=== PATIENT | male | born 1980 | race Caucasian/White ===

== ENCOUNTER 2020-05-14 14:42 | Emergency (ER) | payer OTHER, SELFPAY ==
--- NOTE | ~2020-05-14 | CT_ITS ---
EXAMINATION: CT abdomen pelvis w con EXAM DATE: 05/14/2020 15:35 INDICATION: Low abdominal pain. TECHNIQUE: Spiral CT of the abdomen and pelvis was performed following intravenous injection of 100 m L Omnipaque 350. Axial, coronal and sagittal images were reviewed. The dose-length product (DLP) fo r this examination was 341.86 mGy-cm. The exposure was tailored according to patient size (auto mA e xposure control), and iterative reconstruction (ASIR) was used as additional dose reduction technique . Comparison is made to prior examination from 11/28/2018. FINDINGS: There is small left liver lobe flash filling hemangioma unchanged. The liver, spleen, adre nal glands and pancreas are otherwise unremarkable. Gallbladder is unremarkable. No biliary obstruc tion. Portal and splenic veins are patent. Kidneys enhance symmetrically. There is no hydronephros is. The prostate is unremarkable. The bladder is unremarkable. There is no retroperitoneal or pel sylwia lymphadenopathy. There is suspicion of edema at the cecal base. Appendix measures 7 mm in diameter, was about 6 on jolie or examination. There is no appendicolith or adjacent inflammation. Also suspect mild edema of the de scending colon, with some colonic fluid. Consider colitis. Fluid within the rectum, correlate for leslee rrhea. The stomach and small bowel are unremarkable. There is expected amount of colonic stool. No free intraperitoneal gas. The heart is normal in size. There are no pericardial or pleural effusi ons. The lung bases are unremarkable. The bones are unremarkable. IMPRESSION: 1. Some focal cecal base edema and also suspect sigmoid colonic edema, colonic fluid. Consider enter ocolitis. 2. Appendix slightly larger than on prior study but no obstructing stone or associated inflammation; appendicitis is not suspected. Reviewed, dictated and finalized at location A. IMPRESSION: 1. Some focal cecal base edema and also suspect sigmoid colonic edema, colonic fluid. Consider enterocolitis. 2. Appendix slightly larger than on prior study but no obstructing stone or as sociated inflammation; appendicitis is not suspected.
[2020-05-14 14:43] VITALS: BP 146/88; PULSE 60; RESP 18; TEMP 36.3; O2SAT 100
[2020-05-14 15:01] LABS: Basophils Percent Auto 0.3 % (0.2-1.2); Eosinophils Absolute Auto 0.1 K/mm3 (0-0.3); Eosinophils Percent Auto 0.4 % (0-4.4); Hematocrit 48.7 % (42.0-52.0); Hemoglobin 16.9 g/dL (14.0-18.0); Immature Granulocyte Absolute 0.07 K/mm3 (0.00-0.031); Immature Granulocyte Percent A 0.5 % (0-0.5); Lymphocytes Percent Auto 6.8 % (18.3-44.2); Mean Corpuscular HGB Conc 34.7 g/dl (32-36); Mean Corpuscular Hemoglobin 32.7 pg (26-34); Mean Corpuscular Volume 94.2 fl (80-100); Mean Platelet Volume 9.4 fl (7.4-10.4); Monocytes Absolute Auto 0.4 K/mm3 (0.1-0.6); Monocytes Percent Auto 2.8 % (2.6-8.5); Neutrophils Absolute Auto 11.8 K/mm3 (1.3-6.7); Neutrophils Percent Auto 89.2 % (45.5-73.1); Platelet Count Result 233 k/mm3 (150-375); Red Blood Count 5.17 M/mm3 (4.6-6.20); Red Cell Distribution Width 12.7 % (11.5-14.5); White Blood Count 13.2 K/mm3 (4.5-10.0)
[2020-05-14 15:16] LABS: Alanine Aminotransferase 29 U/L (4-50); Albumin Level 4.6 g/dL (3.5-5.1); Alkaline Phosphatase 88 U/L (38-126); Anion Gap 12.8 mmol/L (7-16); Aspartate Amino Transferase 23 U/L (17-59); Bilirubin,Total 0.6 mg/dL (0.2-1.3); Blood Urea Nitrogen 9 mg/dL (9-20); Calcium 9.4 mg/dL (8.4-10.2); Carbon Dioxide 25 mmol/L (22-30); Chloride 105 mmol/L (98-107); Estimated Glomerular Filt Rate > 60; Glucose 131 mg/dL (75-110); Lipase 46 U/L (23-300); Potassium 3.8 mmol/L (3.4-5.0); Sodium 139 mmol/L (137-145)
[2020-05-14 15:23] LABS: Add Urine Microscopic? YES; Appearance Urine Clear (Clear); Bacteria Urine Trace /hpf; Bilirubin Urine Negative (Negative); Blood Urine Negative (Negative); Color Urine Yellow (Yellow); Glucose Urine UA 1+ mg/dL (Negative); Ketones Urine 2+ mg/dL (Negative); Leukocyte Esterase Ur Negative LEU/UL (Negative); Mucus Urine Rare /lpf; Nitrate Urine Negative (Negative); Protein Urine 1+ mg/dL (Negative); RBC Urine 0-2 /hpf (0-2); Specific Grav Ur 1.027 (1.001-1.035); Squamous Epithelial Cell Urine Rare /hpf (Few); Urobilinogen Urine Negative mg/dL (<2.0); WBC Urine 0-3 /hpf
[2020-05-14] MEDS: SODIUM CHLORIDE 0.9% IV 1,000 ML 999 ML IV CONT (15:38)
[2020-05-14] MEDS: BELLADONNA ALK/PHENOB ELIX 10 ML, MAG HYDROX/ALUMINUM HYD/SIMETH 30 ML, LIDOCAINE HCL 2... PO (16:28)
--- NOTE | 2020-05-14 16:45 | ED.ABDPAIN ---
HPI - Abdominal Pain General Chief Complaint: Abdominal Pain Stated Complaint: abd pain Time Seen by Provider: 05/14/20 14:57 History of Present Illness HPI narrative: Patient is a 39-year-old male who presents the ER with abdominal pain. Woke up this morning with lower abdominal pain with pressure under his bottom like he had to poop. A small bowel movement. No fevers or chills or sweats. Mild nausea. No known sick contacts. Has not had similar symptoms before. Is found no alleviating factors. Reports mild burning reflux. Related Data Home Medications Medication Instructions Recorded Confirmed [id number] 05/14/20 Allergies Allergy/AdvReac Type Severity Reaction Status Date / Time No Known Allergies Allergy Verified 05/14/20 14:48 Review of Systems Review of Systems: All systems reviewed & are unremarkable except as noted in HPI and below Constitutional: Constitutional: Denies chills, Reports fatigue and Denies fever(s) ENT: Denies nasal congestion and Denies sore throat Respiratory: Respiratory: Denies cough and Denies dyspnea Gastrointestinal: Gastrointestinal: Reports abdominal pain, Denies constipation, Reports heartburn, Denies diarrhea, Reports nausea and Denies vomiting Genitourinary: Genitourinary: Denies hematuria, Denies dysuria and Denies urinary frequency PMFSH Past Medical History Medical History (Updated 05/14/20 @ 16:51 by Jayson Kurtz MD) GERD (gastroesophageal reflux disease) Migraines Surgical History Surgical History (Updated 05/14/20 @ 16:46 by Jayson Kurtz MD) H/O shoulder surgery Social History Social History (Updated 05/14/20 @ 16:47 by Jayson Kurtz MD) Social History: History of tobacco use and alcohol use Gender identity (if verbalized by the patient): Male Exam Narrative: Exam Narrative: GENERAL: Well-appearing, well-nourished, and in no acute distress. HEAD: Normocephalic, atraumatic. CHEST: Clear to auscultation. No respiratory distress. HEART: Regular rate and rhythm. Normal peripheral pulses. ABDOMEN: Soft, nontender, nondistended. EXTREMITIES: Normal range of motion. No edema. SKIN: Warm, dry, no rash. NEURO: Alert and oriented x3. PSYCH: Normal mood and affect. Course Course Emergency Course: Informed of lab results and CT imaging results. No real change with GI cocktail. Will discharge with simethicone and Bentyl to help with abdominal cramping given likely developing enterocolitis. Abdominal exam revealed no focal tenderness. Vital Signs Vital signs: Vital Signs Temperature 97.3 F L 05/14/20 14:43 Pulse Rate 60 05/14/20 14:43 Respiratory Rate 18 05/14/20 14:43 Blood Pressure 146/88 H 05/14/20 14:43 Pulse Oximetry 100 05/14/20 14:43 Temperature 97.3 F L 05/14/20 14:43 Pulse Rate 60 05/14/20 14:43 Respiratory Rate 18 05/14/20 14:43 Blood Pressure 146/88 H 05/14/20 14:43 Pulse Oximetry 100 05/14/20 14:43 MDM - Abdominal Pain Lab Data Result diagrams: 05/14/20 14:55 05/14/20 14:55 Labs: Lab Results 05/14/20 05/14/20 05/14/20 Range/Units 14:55 14:55 15:09 WBC 13.2 H (4.5-10.0) K/mm3 RBC 5.17 (4.6-6.20) M/mm3 Hgb 16.9 (14.0-18.0) g/dL Hct 48.7 (42.0-52.0) % MCV 94.2 (80-100) fl MCH 32.7 (26-34) pg MCHC 34.7 (32-36) g/dl RDW 12.7 (11.5-14.5) % Plt Count 233 (150-375) k/mm3 MPV 9.4 (7.4-10.4) fl Immature Gran % (Auto) 0.5 (0-0.5) % Neut % (Auto) 89.2 H (45.5-73.1) % Lymph % (Auto) 6.8 L (18.3-44.2) % Coke % (Auto) 2.8 (2.6-8.5) % Eos % (Auto) 0.4 (0-4.4) % Baso % (Auto) 0.3 (0.2-1.2) % Lymph # (Auto) 0.90 (0.9-3.2) K/mm3 Coke # (Auto) 0.4 (0.1-0.6) K/mm3 Eos # (Auto) 0.1 (0-0.3) K/mm3 Baso # (Auto) 0.0 (0.0-0.1) K/mm3 Abs Immat Gran (auto) 0.07 H (0.00-0.031) K/mm3 Absolute Neuts (auto) 11.8 H (1.3-6.7) K/mm3 Absolute
[2020-05-14 17:50] VITALS: BP 146/83; PULSE 66; RESP 19; O2SAT 100
== END 2020-05-14 17:53 | disposition home or self-care (01) ==
PROVIDERS: Emergency Provider Emergency Medicine; PCP Internal Medicine Infectious Disease
DX: K52.9 Noninfective gastroenteritis and colitis, unspecified (principal); K21.9 Gastro-esophageal reflux disease without esophagitis; Z87.891 Personal history of nicotine dependence
CPT/HCPCS: 36415; 74177; 80053; 81001; 83690; 85025; 96360; 96361; 99284; A9270; J7030; Q9967

== ENCOUNTER 2021-03-13 15:51 | Emergency (ER) | payer OTHER, SELFPAY ==
[2021-03-13 15:59] VITALS: BP 131/87; PULSE 96; RESP 16; TEMP 36.7; O2SAT 100
--- NOTE | 2021-03-13 16:01 | ED.GENADULT ---
HPI - General Adult General Chief complaint: Wound/Laceration Stated complaint: head injury Time Seen by Provider: 03/13/21 15:55 Source: patient and RN notes reviewed Mode of arrival: ambulatory Limitations: no limitations History of Present Illness HPI narrative: 40-year-old male presents to the [facility] with a small laceration to the top of his head. Patient reports that he was up in an attic crawling around repairing some HVAC stuff when he hit his head on some ten nails. tDap over 10 years. Bleeding is controlled. Patient tried cleaning it at home. Was concerned for the ten nails and needing it tetanus shot. Related Data Home Medications Medication Instructions Recorded Confirmed No Home Medications 03/13/21 03/13/21 Allergies Allergy/AdvReac Type Severity Reaction Status Date / Time No Known Allergies Allergy Verified 03/13/21 16:31 Review of Systems Review of Systems: All systems reviewed & are unremarkable except as noted in HPI and below Constitutional: Constitutional: Reports no additional constitutional complaints, Denies chills, Denies fever(s) and Denies weakness Eyes: Eyes: Reports no additional eye complaints, Denies change in vision and Denies photophobia ENT: Reports system reviewed and no additional complaints, except as documented Cardiovascular: Cardiovascular: Reports no additional cardiovascular complaints and Denies chest pain Respiratory: Respiratory: Reports no additional respiratory complaints, Denies cough, Denies dyspnea and Denies wheezing Musculoskeletal: Musculoskeletal: Reports no additional musculoskeletal complaints and Denies back pain Integumentary/Breasts: Skin/Breast: Reports as per HPI Comments: 0.5 cm laceration top of head Neurologic: Reports system reviewed and no additional complaints, except as documented, Denies dizziness, Denies headache(s), Denies focal weakness, Denies numbness and Denies weakness PMF Past Medical History Medical History (Updated 03/13/21 @ 16:22 by Haley Roth) GERD (gastroesophageal reflux disease) Migraines Surgical History Surgical History H/O shoulder surgery Social History Social History Social History: History of tobacco use and alcohol use Gender identity (if verbalized by the patient): Male Comments At the time of my signature, I reviewed and agree with the nursing past medical, surgical, social, and family history. There is no relevant family history pertinent to the patient complaint. Exam Const: General: healthy appearing, no acute distress and alert Nutritional Appearance: well nourished Orientation/consciousness: patient oriented x3 Limitations: no limitations HENMT: Head: normal to inspection Mouth: Yes lip normal Eyes: Conjunctivae: conjunctivae normal Pupils: Equal, round and reactive pupils present EOM: EOMs intact bilaterally Direct Ophthalmoscopy: no photophobia and No photophobia Neck: Neck: normal visual inspection, no lymphadenopathy and no meningeal signs Chest: Chest palpation & inspection: normal inspection of the chest Resp: Effort & Inspection: normal respiratory effort and no use of accessory muscles Auscultation: clear to auscultation bilaterally Cardio: Rate: regular rate Rhythm: regular rhythm Back/Spine/Pelvis: Back: no CVA tenderness Skin: General skin exam: normal color Wounds: wounds noted (Top of scalp 0.5 cm) Neuro: General: patient oriented x3 and moves all extremities Cranial nerves: Yes Nystagmus not present Speech: normal speech Gait exam (Neuro): Normal gait present Extrem: General: normal to inspection Psych: Appearance: grossly normal and well kempt Mental Status: mental status grossly normal Affect: normal affect Attitude: cooperative Thought content: Yes Normal thought content present Course Course Emergency Course: Discharge instructions revi
[2021-03-13] MEDS: TETANUS,DIPHTHERIA,AC PERTUSSIS ADULT (0.5 ML) BOOSTRIX IM (16:09)
== END 2021-03-13 16:26 | disposition home or self-care (01) ==
PROVIDERS: Emergency Provider Nurse Practitioner; PCP Internal Medicine Infectious Disease
DX: S01.01XA Laceration without foreign body of scalp, initial encounter (principal); W45.0XXA Nail entering through skin, initial encounter; Z23 Encounter for immunization; K21.9 Gastro-esophageal reflux disease without esophagitis
CPT/HCPCS: 90471; 90715; 99212; G0463

== ENCOUNTER → 2021-09-28 09:18 | Outpatient (CLI) | payer OTHER, SELFPAY ==
--- NOTE | ~2021-09-28 | XR_ITS ---
XR chest 2V DATE: 09/28/2021 09:44 INDICATION: Nicotine dependence TECHNIQUE: 2 views COMPARISON: None FINDINGS: Normal heart size. No hilar or mediastinal enlargement. The lungs are moderately hyperinflated. No pulmonary infiltrate or consolidation, pleural effusion or pulmonary vascular congestion or pneumothorax. No hilar or mediastinal enlargement. There is mild dextroscoliosis mild degenerative spurring of the thoracic spine. IMPRESSION: Moderate hyperinflation; no active cardiopulmonary disease Reviewed, dictated and finalized at location B. SPECIALIST
--- NOTE | ~2021-09-28 | US_ITS ---
US abdomen complete EXAMINATION: US Abdomen Complete INDICATION: Gallbladder sludge PROCEDURE: Realtime High Resolution abdomen ultrasound. COMPARISON: No prior studies for comparison FINDINGS: Gallbladder within normal limits. No gallstones, pericholecystic fluid, gallbladder wall t hickening or biliary dilatation. Common bile duct measures 4 mm. Liver echotexture within normal limits. There is a 1 cm liver cyst. Pancreas within normal limits. P ancreatic tail is obscured by bowel gas. Spleen is unremarkeable. Renal echotexture is within normal limits bilaterally without hydronephrosis, contour deforming mass or renal stone. Right kidney measu res 10.1 cm. Left kidney measures 9.9 cm. Visualized aspects of the aorta and IVC are within normal limits. Portal vein is patent. No sonograph ic Vizcarra's sign indicated by the technologist. IMPRESSION: 1: Unremarkable abdominal ultrasound. Reviewed, dictated and finalized at location A. [employer]
== END ==
PROVIDERS: PCP Physician Assistant; Visit Provider Physician Assistant
DX: K82.8 Other specified diseases of gallbladder (principal); M94.0 Chondrocostal junction syndrome [Tietze]; M41.9 Scoliosis, unspecified; M46.04 Spinal enthesopathy, thoracic region; F17.210 Nicotine dependence, cigarettes, uncomplicated; K76.89 Other specified diseases of liver
CPT/HCPCS: 71046; 76700

== ENCOUNTER 2022-03-01 11:04 | Outpatient (CLI) | payer OTHER, SELFPAY ==
--- NOTE | ~2022-03-01 | XR_ITS ---
XR knee LT 2V 03/01/2022 11:45 INDICATION: Left knee pain PROCEDURE: 2 views left knee COMPARISON: No prior studies for comparison. FINDINGS: Fracture, dislocation or subluxation is not identified. No significant joint effusion. The soft tissues appear within normal limits. No foreign bodies are identified. IMPRESSION: 1: NO ACUTE BONE OR JOINT ABNORMALITY IDENTIFIED. Reviewed, dictated and finalized at location A.
--- NOTE | ~2022-03-01 | XR_ITS ---
XR hip RT min 2V 03/01/2022 11:46 INDICATION: Right hip pain PROCEDURE: 2 views right hip COMPARISON: No prior studies for comparison. FINDINGS: Fracture, dislocation or subluxation is not identified. The soft tissues appear within norm al limits. No foreign bodies are identified. IMPRESSION: 1: NO ACUTE BONE OR JOINT ABNORMALITY IDENTIFIED. Reviewed, dictated and finalized at location A.
--- NOTE | ~2022-03-01 | XR_ITS ---
XR hip LT min 2V 03/01/2022 11:45 Indication: Left hip pain Procedure: 2 views left hip Comparison: No prior studies for comparison. Findings: No fracture, subluxation or dislocation. There is mild osteoarthritis of the left hip. No s oft tissue abnormality. No foreign bodies. There are pelvic phleboliths. Impression: 1: Mild osteoarthritis of the left hip. Reviewed, dictated and finalized at location A. Impression: 1: Mild osteoarthritis of the left hip.
--- NOTE | ~2022-03-01 | XR_ITS ---
EXAMINATION: XR hand RT 2V DATE: 03/01/2022 11:44 INDICATION: Multiple joint pain at the bilateral hands and wrists. TECHNIQUE: 1. Posteroanterior and lateral views of the right wrist were obtained. 2. Dorsal palmar and lateral views of the right hand were obtained. 3. Posteroanterior and lateral views of the left wrist were obtained. 4. Dorsal palmar and lateral views of the left hand were obtained. COMPARISON: None. FINDINGS: Bilateral ulnar minus variance measuring 3 mm on the right and 2 mm on the left. Otherwise normal ali gnment at the bilateral hands and wrists. No fractures. Joint spaces are normal at the bilateral hand s and wrists. No erosions or osteophytosis. Soft tissues are unremarkable. IMPRESSION: 1. Ulnar minus variance measuring 3 mm on the right and 2 mm on the left. Otherwise normal bilateral hands and wrist radiographs. Reviewed, dictated and finalized at location B. IMPRESSION: 1. Ulnar minus variance measuring 3 mm on the right and 2 mm on the left. Other andersen normal bilateral hands and wrist radiographs. IMPRESSION: 1. Ulnar minus variance measuring 3 mm on the right and 2 mm on the left. Other andersen normal bilateral hands and wrist radiographs. IMPRESSION: 1. Ulnar minus variance measuring 3 mm on the right and 2 mm on the left. Other andersen normal bilateral hands and wrist radiographs.
--- NOTE | ~2022-03-01 | XR_ITS ---
EXAMINATION: XR knee RT 2V DATE: 03/01/2022 11:45 INDICATION: Multiple joint pain TECHNIQUE: 1. Standing AP and lateral views of the right knee were obtained. 2. Standing AP and lateral views of the left knee were obtained.. COMPARISON: None. FINDINGS: Normal alignment at both knees. No fracture. Normal joint spaces at the bilateral knees with no erosi ons or osteophytosis. Soft tissues are unremarkable. No joint effusions on either the left or right. IMPRESSION: 1. Normal bilateral knee radiographs. Reviewed, dictated and finalized at location B.
== END 2022-03-01 11:05 | disposition home or self-care (01) ==
LOC: ANHIMG 11:08
PROVIDERS: PCP Physician Assistant; Visit Provider Internal Medicine Rheumatology
DX: M25.541 Pain in joints of right hand (principal); M25.542 Pain in joints of left hand; M25.532 Pain in left wrist; M25.531 Pain in right wrist; M25.552 Pain in left hip; M25.551 Pain in right hip; M25.562 Pain in left knee; M25.561 Pain in right knee
CPT/HCPCS: 73100; 73120; 73502; 73560

== ENCOUNTER 2022-12-28 14:59 | Emergency (ER) | payer SELFPAY ==
[2022-12-28 15:15] VITALS: BP 127/70; PULSE 79; RESP 18; TEMP 36.6; O2SAT 98
--- NOTE | 2022-12-28 15:24 | ED.EAR ---
HPI - Ear Problem General Chief complaint: Ear Stated complaint: bilateral ear discomfort Time Seen by Provider: 12/28/22 15:24 Source: patient Mode of arrival: ambulatory Limitations: no limitations History of Present Illness HPI Narrative: 42-year-old male presents with complaint of left ear pain with muffled hearing for 2 days. He reports sinus congestion, pressure, postnasal drainage for 5 weeks. Intermittently has been taking Benadryl and also DayQuil NyQuil cold and Sinus. Afebrile. Denies cough. No chest pain or shortness of breath. All systems reviewed and negative except as noted above. Related Data Allergies Allergy/AdvReac Type Severity Reaction Status Date / Time No Known Allergies Allergy Verified 12/28/22 15:20 Review of Systems Review of Systems: CONSTITUTIONAL: Denies fever, chills, or sweats. EYES: Denies visual changes, redness, or discharge. ENT: Reports rhinorrhea, congestion , pressure. Denies sore throat. Reports left ear pain. CARDIOVASCULAR: Denies chest pain, palpitations, or edema. RESPIRATORY: Denies cough or dyspnea. GASTROINTESTINAL: Denies abdominal pain, nausea, vomiting, or diarrhea. GENITOURINARY: Denies dysuria or hematuria. SKIN: Denies rash or itching. MUSCULOSKELETAL: Denies back pain, joint pain, or myalgia. NEUROLOGIC: Denies headache, numbness, or weakness. PSYCHIATRIC: Denies anxiety or depression. All other systems reviewed are negative, except as documented in HPI. [facility] Past Medical History Medical History (Updated 12/28/22 @ 15:25 by Dulce Maria Baltazar NP) GERD (gastroesophageal reflux disease) Migraines Surgical History Surgical History H/O shoulder surgery Social History Social History Social History: History of tobacco use and alcohol use Gender identity (if verbalized by the patient): Male Comments At time of signature, agree with nursing past medical, surgical, social and family history. There is no relevant family history pertinent to the presenting complaint. Exam Narrative: GENERAL: This is a well-nourished, well-developed patient, in no apparent distress. HEAD: normocephalic, atraumatic. EYES: PERRL. Sclera clear/white. Vision is grossly intact. EARS: External ears normal, auditory canals clear and without drainage, fluid bilateral TMs. No erythema. No perforation. NOSE: External nose normal with Clear nasal drainage, erythema and swelling to both nares. Bilateral maxillary sinus tenderness. THROAT: Mucous membranes moist, Posterior pharynx is erythematous with clear postnasal drainage. NECK: Neck supple, non-tender without lymphadenopathy, masses or thyromegaly. CARDIOVASCULAR: Regular rate and rhythm without murmurs, gallops, or rubs. RESPIRATORY: Clear to auscultation. Breath sounds equal bilaterally. No wheezes, rales, or rhonchi. SKIN: warm, Dry, intact with no suspicious lesions or rash, good texture and turgor. NEURO: awake, alert, and oriented to person, place and time. There were no obvious focal neurologic abnormalities. EXTREMITIES: No joint tenderness, effusion, or edema noted. Course Course Level of Care: Express Care Visit Vital Signs Vital signs: Vital Signs Temperature 36.6 C 12/28/22 15:15 Pulse Rate 79 12/28/22 15:15 Respiratory Rate 18 12/28/22 15:15 Blood Pressure 127/70 12/28/22 15:15 Pulse Oximetry 98 12/28/22 15:15 Oxygen Delivery Room Air 12/28/22 15:15 Temperature 36.6 C 12/28/22 15:15 Pulse Rate 79 12/28/22 15:15 Respiratory Rate 18 12/28/22 15:15 Blood Pressure 127/70 12/28/22 15:15 Pulse Oximetry 98 12/28/22 15:15 Oxygen Delivery Room Air 12/28/22 15:15 Reviewed Medical Decision Making MDM Narrative Medical decision making narrative: Patient is aware of diagnosis, understands and agrees to treatment plan. Anticipatory guidance given.
== END 2022-12-28 15:32 | disposition home or self-care (01) ==
PROVIDERS: Emergency Provider Nurse Practitioner Family
DX: H65.02 Acute serous otitis media, left ear (principal); J01.90 Acute sinusitis, unspecified; B96.89 Other specified bacterial agents as the cause of diseases classified elsewhere
CPT/HCPCS: 99213; G0463

== ENCOUNTER 2023-03-20 10:18 | Emergency (ER) | payer SELFPAY ==
--- NOTE | ~2023-03-20 | XR_ITS ---
XR foot RT min 3V 03/20/2023 10:51 INDICATION: Right foot pain after trauma PROCEDURE: 4 views right foot COMPARISON: No prior studies for comparison. FINDINGS: Fracture, dislocation or subluxation is not identified. Lisfranc joint intact. The soft tis sues appear within normal limits. No foreign bodies are identified. IMPRESSION: 1: NO ACUTE BONE OR JOINT ABNORMALITY IDENTIFIED. Reviewed, dictated and finalized at location []
[2023-03-20 10:27] VITALS: BP 123/84; PULSE 66; RESP 16; TEMP 36.2; O2SAT 100
--- NOTE | 2023-03-20 10:54 | ED.LOWEXIN ---
HPI - Extremity Injury (Lower) General Chief Complaint: Extremity Injury, Lower Stated Complaint: rt foot injury Time Seen by Provider: 03/20/23 10:45 Source: patient and RN notes reviewed Mode of arrival: ambulatory Limitations: no limitations History of Present Illness HPI Narrative: Patient presents today complaining of pain to his right foot. He struck it on the corner of a bed last night. He has been ambulatory since the injury with increased pain. Currently rates his pain 6/10 and has been taking ibuprofen with some relief. Denies numbness or tingling. Related Data Home Medications Medication Instructions Recorded Confirmed No Home Medications 03/20/23 03/20/23 Allergies Allergy/AdvReac Type Severity Reaction Status Date / Time No Known Allergies Allergy Verified 03/20/23 10:26 Review of Systems Review of Systems: CONSTITUTIONAL: Denies body aches, fever, chills, or sweats. EYES: Denies visual changes, redness, or discharge. ENT: Denies rhinorrhea, congestion, sore throat, or otalgia. CARDIOVASCULAR: Denies chest pain, palpitations, or edema. RESPIRATORY: Denies cough or dyspnea. GASTROINTESTINAL: Denies abdominal pain, nausea, vomiting, or diarrhea. GENITOURINARY: Denies dysuria or hematuria. SKIN: Denies rash, itching, or wounds. MUSCULOSKELETAL: Denies back pain,or myalgia.+ right foot pain NEUROLOGIC: Denies headache, numbness, tingling, or weakness. PSYCH: Denies depression or anxiety. PMFSH Past Medical History Medical History GERD (gastroesophageal reflux disease) Migraines Surgical History Surgical History H/O shoulder surgery Social History Social History Social History: History of tobacco use and alcohol use Gender identity (if verbalized by the patient): Male Comments At time of signature, I have reviewed and agree with nursing past medical, surgical, social and family history unless otherwise noted. Please see nursing chart for further information. There is no relevant family history pertinent to the presenting complaint Exam Narrative: GENERAL: Well-appearing, well-nourished, and in no acute distress. HEAD: Normocephalic, atraumatic. EYES: EOMI. No redness or drainage. Conjunctivae normal. ENT: Mucous membranes pink and moist. NECK: Normal AROM. CHEST: No respiratory distress. EXTREMITIES: Right foot: Mild tenderness and localized edema to the proximal portion of metatarsals 4 and 5. Distal sensation intact. Capillary refill normal. Pedal pulse normal. Full range of motion of toes and ankle. No tenderness to the ankle. SKIN: Warm, dry, no rash. Capillary refill normal. Normal skin turgor. NEURO: No focal deficits. Alert and oriented x3. Gait steady. PSYCH: Normal affect. No signs of depression or anxiety. Course Course Level of Care: Express Care Visit Vital Signs Vital signs: Vital Signs Temperature 97.1 F L 03/20/23 10:27 Pulse Rate 66 03/20/23 10:27 Respiratory Rate 16 03/20/23 10:27 Blood Pressure 123/84 03/20/23 10:27 Pulse Oximetry 100 03/20/23 10:27 Oxygen Delivery Room Air 03/20/23 10:27 Temperature 97.1 F L 03/20/23 10:27 Pulse Rate 66 03/20/23 10:27 Respiratory Rate 16 03/20/23 10:27 Blood Pressure 123/84 03/20/23 10:27 Pulse Oximetry 100 03/20/23 10:27 Oxygen Delivery Room Air 03/20/23 10:27 Reviewed. Pt has been instructed to follow up with his PCP regarding his elevated blood pressure today. MDM - Extremity Injury (Lower) MDM Narrative Medical decision making narrative: X-ray negative. No prescription medications indicated at this time. Anticipatory guidance given Differential Diagnosis Differential diagnosis: Likely other (Foot contusion, foot fracture) Imaging Data Radiologist's impression:
== END 2023-03-20 11:13 | disposition home or self-care (01) ==
PROVIDERS: Emergency Provider Nurse Practitioner
DX: S90.31XA Contusion of right foot, initial encounter (principal); W22.03XA Walked into furniture, initial encounter; K21.9 Gastro-esophageal reflux disease without esophagitis; Z87.891 Personal history of nicotine dependence
CPT/HCPCS: 73630; 99213; G0463

== ENCOUNTER 2023-05-01 10:27 | Emergency (ER) | payer SELFPAY ==
[2023-05-01 10:50] VITALS: BP 131/84; PULSE 63; RESP 16; TEMP 36.7; O2SAT 100
--- NOTE | 2023-05-01 11:07 | ED.EYEPROB ---
HPI - Eye Problem General Chief complaint: Eye Problems Stated complaint: Rt Eye Irritation Time Seen by Provider: 05/01/23 11:07 Source: patient, RN notes reviewed and old records reviewed Mode of arrival: ambulatory Limitations: no limitations History of Present Illness HPI Narrative: [age] year presents to the [facility] with complaints right eye irritation since Monday. No treatment prior to arrival. Patient states that on he was doing yd work and may have gotten some sweat in his eye Has been wiping it with cool compresses. States it was crusted this morning and has had clear discharge Denies any foreign body sensation Onset (ago): day(s) (3) Onset description: gradual Duration: intermittent Eye Symptoms: redness Treatments Prior to Arrival: other (Cool compresses) Related Data Allergies Allergy/AdvReac Type Severity Reaction Status Date / Time No Known Allergies Allergy Verified 03/20/23 10:26 Review of Systems Review of Systems: All systems reviewed & are unremarkable except as noted in HPI and below Constitutional: Constitutional: Reports no additional constitutional complaints Eyes: Eyes: Reports as per HPI, Reports irritation (Right eye) and Reports itchy eyes ENT: Reports system reviewed and no additional complaints, except as documented Cardiovascular: Cardiovascular: Reports no additional cardiovascular complaints, Denies chest pain and Denies dyspnea Respiratory: Respiratory: Reports no additional respiratory complaints, Denies chest congestion, Denies cough and Denies dyspnea Gastrointestinal: Gastrointestinal: Reports no additional gastrointestinal complaints, Denies abdominal pain, Denies nausea and Denies vomiting Musculoskeletal: Musculoskeletal: Reports no additional musculoskeletal complaints Integumentary/Breasts: Skin/Breast: Reports system reviewed and no additional complaints, except as docu Neurologic: Reports system reviewed and no additional complaints, except as documented Psychiatric: Psychiatric: Reports no additional psychiatric complaints Allergic/Immunologic: Allergic/Immunologic: Reports no additional allergic/immunologic complaints PMFSH Past Medical History Medical History GERD (gastroesophageal reflux disease) Migraines Surgical History Surgical History H/O shoulder surgery Social History Social History Social History: History of tobacco use and alcohol use Gender identity (if verbalized by the patient): Male Comments At the time of my signature, I reviewed and agree with the nursing past medical, surgical, social, and family history. There is no relevant family history pertinent to the patient complaint. Exam Const: General: cooperative, healthy appearing, comfortable, no acute distress, well developed, alert and well nourished Nutritional Appearance: well nourished Orientation/consciousness: patient oriented x3 Limitations: no limitations HENMT: Head: normal to inspection Ears: hearing grossly normal bilaterally and external ears normal Face/Nose/Sinus: Normal external nose present, Normal nares present, Normal nasal mucous membranes and turbinates present and normal facial exam Face and sinus: normal facial exam Mouth: Yes Normal oral and palatal mucosa present, Yes lip normal and Yes moist mucous membranes Throat: posterior oropharynx normal and uvula midline Eyes: General: appearance normal, both eyes and all related structures Alignment and Position: alignment normal Periorbital: periorbital findings normal Eyelids: eyelid abnormality right lower eyelid erythema; without inflamed cyst, no crusting or scaling of lid margins, with no swelling and nontender Conjunctivae: conjunctivae normal Pupils: Equal, round and reactive pupils present EOM: EOMs intact bilaterally Neck:
== END 2023-05-01 11:35 | disposition home or self-care (01) ==
PROVIDERS: Emergency Provider Nurse Practitioner
DX: H57.11 Ocular pain, right eye (principal); K21.9 Gastro-esophageal reflux disease without esophagitis
CPT/HCPCS: 99213; G0463

== ENCOUNTER 2023-08-12 09:18 | Emergency (ER) | payer SELFPAY ==
--- NOTE | 2023-08-12 09:19 | ED.EYEPROB ---
HPI - Eye Problem General Stated complaint: Lt Eye Irritation Time Seen by Provider: 08/12/23 09:19 Source: patient Mode of arrival: ambulatory Limitations: no limitations History of Present Illness HPI Narrative: Patient is a 42-year-old male that presents with left eye irritation and crusting shut. Patient states for the past few months he has had conjunctivitis going back and forth to both eyes. Patient has been using previously prescribed antibiotic drops with no relief. Denies any changes in vision or pain. Denies any fever, chills, nausea, vomiting, diarrhea, congestion, ear pain, sore throat, cough. Related Data Allergies Allergy/AdvReac Type Severity Reaction Status Date / Time No Known Allergies Allergy Verified 03/20/23 10:26 Review of Systems Review of Systems: All systems reviewed & are unremarkable except as noted in HPI and below Constitutional: Constitutional: Denies body ache(s), Denies fever(s), Denies headache(s), Denies malaise and Denies weakness Eyes: Eyes: Denies blurry vision, Reports eye discharge, Reports irritation, Reports itchy eyes, Denies loss of vision and Denies eye pain ENT: Denies otalgia, Denies headache(s), Denies nasal discharge, Denies sinus pain and Denies sore throat Cardiovascular: Cardiovascular: Denies chest pain, Denies irregular heart rhythm and Denies dyspnea Respiratory: Respiratory: Denies dyspnea Gastrointestinal: Gastrointestinal: Denies abdominal pain, Denies diarrhea, Denies nausea and Denies vomiting Musculoskeletal: Musculoskeletal: Denies back pain, Denies myalgias and Denies arthralgias Integumentary/Breasts: Skin/Breast: Denies pruritus and Denies rash Neurologic: Denies headache(s), Denies loss of vision and Denies weakness Psychiatric: Psychiatric: Reports no additional psychiatric complaints Allergic/Immunologic: Allergic/Immunologic: Reports itchy eyes PMFSH Past Medical History Medical History GERD (gastroesophageal reflux disease) Migraines Surgical History Surgical History H/O shoulder surgery Social History Social History Social History: History of tobacco use and alcohol use Gender identity (if verbalized by the patient): Male Comments At time of signature, agree with nursing past medical, surgical, social and family history. There is no relevant family history pertinent to the presenting complaint. Exam Const: General: cooperative, healthy appearing, comfortable, no acute distress and well nourished Nutritional Appearance: well nourished Orientation/consciousness: patient oriented x3 Limitations: no limitations HENMT: Head: normal to inspection, normocephalic and atraumatic Ears: external ears normal Face/Nose/Sinus: Normal external nose present, normal facial exam and face symmetric Face and sinus: normal facial exam and face symmetric Mouth: Yes lip normal Eyes: General: appearance normal, both eyes and all related structures Visual Gunderson: normal visual gunderson by confrontation Alignment and Position: alignment normal and position normal Periorbital: periorbital findings normal Eyelids: eyelids normal Conjunctivae: conjunctival abnormality right conjunctival injection diffuse and left conjunctival injection diffuse and discharge mucoid Sclera: sclerae normal Pupils: Equal, round and reactive pupils present EOM: EOMs intact bilaterally Direct Ophthalmoscopy: no photophobia Other: No hyphema, no foreign body under the lids. Neck: Neck: normal visual inspection, full ROM, no lymphadenopathy and no meningeal signs Chest: Chest palpation & inspection: normal inspection of the chest Resp: Effort & Inspection: normal respiratory effort and able to speak in complete sentences Auscultation: clear to auscultation bilaterally Cardio: Rate: regular rate Rhy
[2023-08-12 09:28] VITALS: BP 134/79; PULSE 86; RESP 16; TEMP 36.4; O2SAT 99
== END 2023-08-12 10:06 | disposition home or self-care (01) ==
PROVIDERS: Emergency Provider Nurse Practitioner Family
DX: H10.33 Unspecified acute conjunctivitis, bilateral (principal)
CPT/HCPCS: 99213; G0463

== ENCOUNTER 2025-04-07 17:49 | Emergency (ER) | payer SELFPAY ==
--- OUTSIDE RECORDS SUMMARY | 2025-04-07 17:52 | XMS_ITS | Clinical Summary ---
Author Organization [facility] Address [address] [place] [id number] Care Team Providers Care Health Information Assistant Name Role Phone Heather Hurd MD Primary Care Provider Social History Tobacco Use Types Packs/Day Years Used Date Smoking Tobacco: Never Assessed Sex and Gender Information Value Date Recorded Sex Assigned at Not on file Legal Sex Male 6:48 PM CDT Gender Identity Not on file Sexual Orientation Not on file Plan of Treatment Health Maintenance Due Date Last Done Comments Colorectal Cancer Screening Colonoscopy (10 Years) 1978 Annual Physical 1981 Hepatitis C 1996 DTaP, Tdap and Td Vaccines ( 1 - Tdap) 1997 Hepatitis B Vaccines (1 of 3 - 19+ 3-dose series) 1997 COVID-19 Vaccine (2023-2 5 season) 2024 Meningococcal B Vaccine Aged Out No l onger eligible based on patient's age to complete this topic Meningococcal Vaccine Aged Out No julia xu eligible based on patient's age to complete this topic Pneumococcal Vaccine: Pediat rics (0 to 5 Years) and At-Risk Patients (6 to 49 Years) Aged Out No longer eligible b ased on patient's age to complete this topic RSV Immunizations Under 20 Months Aged Out No longer eligible based on patient's age to complete this topic Care Teams Health Information Assistant Relationship Specialty Start Date End Date Heahter Hurd MD [address], [place] [address] PCP - General 08/24/11
--- OUTSIDE RECORDS SUMMARY | 2025-04-07 17:52 | XMS_ITS | Referral Summary ---
Author Organization [facility] Address [address] [place] [address] Care Team Providers Care Buffer Nickel Name Role Phone Katerine Kebede Primary Care Provider [phone]- [phone] Allergies No known active allergies Medications buPROPion XL (WELLBUTRIN XL) 300 mg 24 hr tabletIndication s:Episode of recurrent major depressive disorder, unspecified depression episode severity,Tobacco use disorder Take 1 tablet (300 mg total) by mouth every morning 90 tablet 3 01/03/2022 Active Active Problems Problem Noted Date Diagnosed Date Fatigue 01/03/2022 Globus sensation 01/03/2022 Assessment & Plan (01/03/2022 7:34 PM CDT): Recent tsh within normal limits Advised referral to ENT for further evaluation - he declines at this time encouraged continued attempts at smoking cessation, cutting back on acidity in diet, trial of prilosec 20mg qd Episode of recurrent major depressive disorder 0 10/11/2021 Assessment & Plan (01/03/2022 7:35 PM CDT): Increase wellbutrin to 300mg daily Advised not stopping abruptly Assessment & Plan (10/11/2021 4:38 PM CONTROL DIRECTOR): Stable with current medication, continue same dosing at this time. We discussed increasing to 300 mg, however he is just refilled his medication wants to see how he does with this dose. He will call us at the time of his next refill to discuss potentially increasing. He was also reminded to not stop this medication abruptly. 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 He has pending rheumatological workup. We discussed attempting to find another office for a sooner appointment, however he declines at this time as pain is improved. Hyperlipidemia 10/11/2021 Assessment & Plan (01/03/2022 7:34 PM CDT): We reviewed recent labs. He was advised a statin due to increased ldl, declines at this time. He was advised a heart healthy diet, exercise 4x/week for 30min each session. Will intend on repeating flp in 6mo. Assessment & Plan (10/11/2021 4:37 PM CONTROL DIRECTOR): We reviewed recent labs in detail. He was advised heart healthy diet, exercise 4 times per week for 30 minutes each session. Encouraged cutting back on red meat and pork. Will repeat a fasting lipid panel in 8-12 weeks. Labs entered for [facility]. History of Clostridioides difficile infection Assessment & Plan (09/06/2021 6:32 PM CONTROL DIRECTOR): Retrieve records from previous PCP. We discussed attempts to minimize antibiotic use. Need for influenza vaccination 09/06/2021 Tobacco use disorder 09/06/2021 Assessment & Plan (01/03/2022 7:35 PM CDT): Advised continued attempts at smoking cessation Assessment & Plan (10/11/2021 4:37 PM CONTROL DIRECTOR): Encouraged continued attempts at smoking cessation. Assessment & Plan (09/06/2021 6:32 PM CONTROL DIRECTOR): Advised tempting to cut back and ultimately quit smoking. Will initiate Wellbutrin to assist in this endeavor. BMI 25.0-25.9,adult 09/06/2021 Arthralgia 09/06/2021 Assessment & Plan (09/06/2021 6:33 PM CONTROL DIRECTOR): Will evaluate further with labs and imaging. We discussed this could have several potential etiologies, including depression. Gallbladder sludge 09/06/2021 Assessment & Plan (10/11/2021 4:38 PM CONTROL DIRECTOR): We reviewed recent normal abdominal ultrasound. He is asymptomatic at this time and declines further workup. Assessment & Plan (09/06/2021 6:33 PM CONTROL DIRECTOR): Will re-evaluate on abdominal ultrasound. Costochondritis 09/06/2021 Assessment & Plan (09/06/2021 6:33 PM CONTROL DIRECTOR): We discussed potential etiologies, including cardiovascular concerns. He declines to report to the ER now for further evaluation and treatment. He declines the advise Holter monitor. He will complete chest x-ray and labs, and we will notify him of the results as they become available. He was reminded advised to report to the ER in the meantime the symptoms worsen or do not improve. Resolved Problems Problem Noted Date Diagnosed Date Resolved Date Encounter to establish care 09/06/2021 10/11/2021 Assessment & Plan (09/06/2021 6:32 PM CONTROL DIRECTOR): Retrieve records from previous PCP Immunizations Immunization Administration Dates Next Due Influenza, Quadrivalent, Spl it, Preservative Free, Intramuscular 09/06/2021 Tdap 03/13/2021,09/08/2011 Social History Tobacco Use Types Packs/Day Years Used Date Smoking Tobacco: Every Day Cigarettes 1 27 Smokeless Tobacco: Never PHQ-2 Answer Date Recorded PHQ-2 Total Score 2 09/06/2021 Sex and Gender Information Value Date Recorded Sex Assigned at Not on file Legal Sex Male 3:30 AM CONTROL DIRECTOR Gender Identity Not on file Sexual Orientation Not on file 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 Last Filed Vital Signs Vital Sign Reading Time Taken Comments Blood Pressure 130/80 01/03/2022 5:24 PM CDT Pulse 61 01/03/2022 5:24 PM CDT Temperature 37.3 C (99.2 F) 01/03/2022 5:24 PM CDT Respiratory Rate 18 09/06/2021 5:10 PM CONTROL DIRECTOR Oxygen Saturation 97% 01/03/2022 5:24 PM CDT Inhaled Oxygen Concentration - - Weight 72 kg (158 lb 12.8 oz) 01/03/2022 5:24 PM CDT Height 167.6 cm (5' 6) 01/03/2022 5:24 PM CDT Body Mass Index 25.63 01/03/2022 5:24 PM CDT Plan of Treatment Not on file Insurance [facility] [employer] Care Teams Buffer Nickel Relationship Specialty Start Date End Date Katerine Kebede PA PCP - General Banquet Attendant 08/23/21
--- OUTSIDE RECORDS SUMMARY | 2025-04-07 17:52 | XMS_ITS | Clinical Summary ---
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 He has pending [...] 6mo. Assessment & Plan (10/11/2021 4:37 PM CASKET ASSEMBLER METAL): We reviewed recent labs in detail. He was advised heart healthy diet, exercise 4 times per week for 30 minutes each session. Encouraged cutting back on red meat and pork. Will repeat a fasting lipid panel in 8-12 weeks. Labs entered for [facility]. History of Clostridioides difficile infection Assessment & Plan (09/06/2021 6:32 PM CASKET ASSEMBLER METAL): Retrieve records from previous PCP. We discussed attempts to minimize antibiotic use. Need for influenza vaccination 09/06/2021 Tobacco use disorder 09/06/2021 Assessment & Plan (01/03/2022 7:35 PM CDT): Advised continued attempts at smoking cessation Assessment & Plan (10/11/2021 4:37 PM CASKET ASSEMBLER METAL): Encouraged continued attempts at smoking cessation. Assessment & Plan (09/06/2021 6:32 PM CASKET ASSEMBLER METAL): Advised tempting to cut back and ultimately quit smoking. Will initiate Wellbutrin to assist in this endeavor. BMI 25.0-25.9,adult 09/06/2021 Arthralgia 09/06/2021 Assessment & Plan (09/06/2021 6:33 PM CASKET ASSEMBLER METAL): Will evaluate further with labs and imaging. We discussed this could have several potential etiologies, including depression. Gallbladder sludge 09/06/2021 Assessment & Plan (10/11/2021 4:38 PM CASKET ASSEMBLER METAL): We reviewed recent normal abdominal ultrasound. He is asymptomatic at this time and declines further workup. Assessment & Plan (09/06/2021 6:33 PM CASKET ASSEMBLER METAL): Will re-evaluate on abdominal ultrasound. Costochondritis 09/06/2021 Assessment & Plan (09/06/2021 6:33 PM CASKET ASSEMBLER METAL): We discussed potential etiologies, including cardiovascular concerns. [...] 10/11/2021 Assessment & Plan (09/06/2021 6:32 PM CASKET ASSEMBLER METAL): Retrieve records from previous PCP Immunizations Immunization Administration Dates Next Due Influenza, Quadrivalent, Spl it, Preservative Free, Intramuscular 09/06/2021 Tdap 03/13/2021,09/08/2011 Surgical History Surgery Date Site/Laterality Comments SHOULDER SURGERY 08/09/2015 - 09/07/2015 Right bicep repair, 3 tendons, rotator cuff Family History Medical History Relation Name Comments COPD Mother Lung cancer Mother Diabetes Other 1 Family history of Diabetes mellitus; Heart disease Other 2 Family history of Heart problems; Lung disease Other 3 Family history of Lung problems; Alcohol abuse Other 4 Family history of Alcoholism; Hypertension Other 5 Family history of Hypertension; Relation Name Status Comments Mother Other 1 Other 2 Other 3 Other 4 Other 5 Social History Tobacco Use Types Packs/Day Years Used Date Smoking Tobacco: Every Day Cigarettes 1 27 Smokeless Tobacco: Never PHQ-2 Answer Date Recorded PHQ-2 Total Score 2 09/06/2021 Sex and Gender Information Value Date Recorded Sex Assigned at Not on file Legal Sex Male 3:30 AM CASKET ASSEMBLER METAL Gender Identity Not on file Sexual Orientation Not on file 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 Obstetrics History Last Filed Vital Signs Vital Sign Reading Time Taken Comments Blood Pressure 130/80 01/03/2022 5:24 PM CDT Pulse 61 01/03/2022 5:24 PM CDT Temperature 37.3 C (99.2 F) 01/03/2022 5:24 PM CDT Respiratory Rate 18 09/06/2021 5:10 PM CASKET ASSEMBLER METAL Oxygen Saturation 97% 01/03/2022 5:24 PM CDT Inhaled Oxygen Concentration - - Weight 72 kg (158 lb 12.8 oz) 01/03/2022 5:24 PM CDT Height 167.6 cm (5' 6) 01/03/2022 5:24 PM CDT Body Mass Index 25.63 01/03/2022 5:24 PM CDT Plan of Treatment Not on file Insurance [facility] [employer] Care Teams Accreditation Specialist Relationship Specialty Start Date End Date Katerine Kebede PA PCP - General Marble Cutter Operator 08/23/21
--- OUTSIDE RECORDS SUMMARY | 2025-04-07 17:52 | XMS_ITS | Continuity of Care Document ---
Author Organization [facility] Address [address] [place] [address] Phone Care Team Providers Care Window Trimmer Apprentice Name Role Phone Mitul Fernandez MD Unavailable Unavailable Allergies, Adverse Reactions, Alerts Substance Reaction Status Criticality No Known Drug Allergies Active No I nformation Medications Medication Instructions Dosage Effective Dates (start - stop) Status Comments No Drug Therapy Prescribed Procedures Procedure Date Independent Medical Examination POLLO Advance Directives Directive Yes / No Effective Date File Name No Information Encounters Encounter Description Practice Location Reason(s) For Visit Diagnoses Date Provider Providers Copied on Encounter [facility], [address] [place] [address], [address] [place] [address], tel:[phone] [facility] No Information 8 5 Jim Bauman. [address] [place] [address], [id number] , [place]. tel: [phone] Independent Medical Examination [facility], [address] [place] [address], [id number], [phone] [facility] [address] Jim Bauman. [address] [place] [address], [id number] , [place]. tel: [phone] Family History Family Member Type Diagnosis Age At Onset Mother Problem (finding) Heart disease Mother Problem (finding) hypertension Father Problem (finding) Diabetes mellitus Payers Payer name Insurance type Covered alliance party ID Authoriza tion(s) [employer] WC [id number] Social History Type Description Quantity Date Captured Comments Alcohol Use Details Caffeine Use Details Unknown Tobacco Use Status Smoking Status No Information Sex Male Chief Complaint And Reason For Visit No Information Reason For Referral Reason For Referral No Information Plan Of Treatment Date Type Action Status Patient Education Body Mass Index: After Your Visit completed History Of Present Illness Encounter Date Complaint History Of Prese nt Illness No Information Functional Status Date Functional Assessmen t No Information Medications Administered Medication Instructions Dosage Effective Dates (start - stop) Status Comments No Drug Therapy Prescribed Instructions Date Instruction Additional Infor mation No Information Assessments Type Assessment Date No Information Patient Care Teams Name Effective Dates (start - stop) Status Members No Information
--- OUTSIDE RECORDS SUMMARY | 2025-04-07 17:52 | XMS_ITS | Clinical Summary ---
Author Organization [facility] Address [address] [place] [phone] Phone Care Team Providers Care User Interface Developer Name Role Phone Unavailable Primary Care Provider Unavailabl e Social History Tobacco Use Types Packs/Day Years Used Date Smoking Tobacco: Never Assessed Sex and Gender Information Value Date Recorded Sex Assigned at Not on file Legal Sex Male 1:43 PM CDT Gender Identity Not on file Sexual Orientation Not on file Plan of Treatment Health Maintenance Due Date Last Done Comments DTAP/TDAP/TD VACCINES (1 - Tdap) 1997 HEPATITIS B VACCINES (1 of 3 - 19+ 3-dose series) 1997 COLORECTAL SCREENING 2023 Colorectal Cancer Screening 2023 FIT-DNA Q 3 years 2023 FIT/FOBT Q 1 year 2023 Flex Sig/CT Colonography Q 5 years 2023 INFLUENZA VACCINE (#1) 2024 HPV VACCINES Aged Out No longer eligi ble based on patient's age to complete this topic
--- OUTSIDE RECORDS SUMMARY | 2025-04-07 17:53 | XMS_ITS | Continuity of Care Document ---
Author Organization [facility] Address [address] [place] [address] Phone Care Team Providers Care Warp Tier Name Role Phone Mitul Fernandez MD Unavailable [...] Date Provider Providers Copied on Encounter [facility], [address] [place] [address], [address] [place] [address], tel:[phone] [facility] No Information 8 5 Jim Bauman. [address] [place] [address], [id number] , [place]. tel: [phone] Independent Medical Examination [facility], [address] [place] [address], [id number], [phone] [facility] [address] Jim Bauman. [address] [place] [address], [id number] , [place]. tel: [phone] Family History Family Member Type Diagnosis Age At Onset Mother Problem (finding) Heart disease Mother Problem (finding) hypertension Father Problem (finding) Diabetes mellitus Payers Payer name Insurance type Covered democrat ID Authoriza tion(s) [employer] WC [id number] Social History Type Description Quantity Date Captured [...]
--- NOTE | 2025-04-07 17:56 | ED.UPPEXIN ---
HPI - Extremity Injury (Upper) General Chief Complaint: Extremity Injury, Upper Stated Complaint: finger injury Time Seen by Provider: 04/07/25 17:57 Source: patient Mode of arrival: ambulatory Limitations: no limitations History of Present Illness HPI narrative: 44 y/o male presented for c/o laceration to the left middle finger sustained just prior to arrival. Says he cut the finger on the plastic piece of a reciprocating saw, when he accidentally turned on the switch. Says bleeding is slowing. last tetanus 03/2021. Related Data Allergies Allergy/AdvReac Type Severity Reaction Status Date / Time No Known Allergies Allergy Verified 04/07/25 17:53 Review of Systems Review of Systems: CONSTITUTIONAL: Denies body aches, fever, chills, or sweats. EYES: Denies visual changes, redness, or discharge. ENT: Denies rhinorrhea, congestion CARDIOVASCULAR: Denies chest pain, palpitations, or edema. RESPIRATORY: Denies cough or dyspnea. GASTROINTESTINAL: Denies abdominal pain, nausea, vomiting, or diarrhea. SKIN: per HPI MUSCULOSKELETAL: Denies back pain, joint pain, or myalgia. NEUROLOGIC: Denies headache, numbness, tingling, or weakness. [facility] Past Medical History Medical History GERD (gastroesophageal reflux disease) Migraines Surgical History Surgical History H/O shoulder surgery Social History Social History Social History: History of tobacco use and alcohol use Gender identity (if verbalized by the patient): Male Comments At time of signature, I have reviewed and agree with nursing past medical, surgical, social and family history unless otherwise noted. Please see nursing chart for further information. There is no relevant family history pertinent to the presenting complaint Exam Narrative: GENERAL: Well-appearing EYES: conjunctivae clear, and EOMI. ENT: Mucous membranes moist. Oropharynx without edema, erythema or lesions. NECK: Supple. No lymphadenopathy CHEST: Clear to auscultation. HEART: Regular rate and rhythm. SKIN: Warm, dry. Left 3rd digit distal phalanx with irregular U-shaped flap laceration adjacent to nail, approx 1cm. no nail involvement. CMS intact. NEURO: Alert and oriented x3. Course Course Emergency Course: Patient is aware of diagnosis, understands and agrees to treatment plan. Anticipatory guidance given. Patient agrees to follow-up as directed and is aware of reasons to seek care at the emergency department. Portions of this record may have been created with voice recognition software Level of Care: Express Care Visit Vital Signs Vital signs: Reviewed Procedures Laceration left 3rd digit: Date: 04/07/25 Size (cm): 1 Description: flap, irregular and clean Depth: simple, single layer Local Anesthetic: lidocaine 1% Amount of anesthesia used (mL): 1 Pre-repair: irrigated (30mL and cleansed with skintegrity) ====== Skin Level ====== Skin layer closed with: nylon Size (cm): 5-0 Number of sutures: 3 Technique: simple, interrupted ====== Subcutaneous Layer ====== ====== Muscle Layer ====== ====== Tendon Layer ====== Dressing: The procedure and its alternatives were reviewed with patient. Risks were reviewed with patient including infection and damage to nearby structures. Patient provided verbal informed consent. The patient was positioned appropriately. Sterile drapes applied to maintain sterile field. Wound was explored for abnormalities including infection and foreign bodies. Sutures placed with wound edges approximated. Patient tolerated well, no complications. Dressing applied per RN. MDM - Extremity Injury (Upper) MDM Narrative Medical decision making narrative: Discussed physical exam findings, pt tolerated suture placement to left 3rd digit. Tetanus utd. Advised supportive measures and signs/symptoms to go to the ER. Pt is appropriate for outpt treatment and f/u. Differential Diagnosis Differential diagnosis: Likely other (Laceration, abrasion, avulsion, contusion) Discharge Plan Discharge Clinical Impression: Finger laceration Qualifiers: Encounter type: initial encounter Finger: middle finger Damage to nail status: without damage Foreign body presence: without foreign body Laterality: left Qualified Code(s): S61.213A - Laceration without foreign body of left middle finger without damage to nail, initial encounter Patient Disposition: Home Condition: Stable Instructions: Antibiotic Form, Finger Laceration (ED) Additional Instructions: Your sutures need to be removed in 7-10 days. You can return to the clinic or follow up with your pcp. Wear the dressing that has been applied for the first 24 hours to allow a scab to start forming. After this, you may remove and wash as normal with soap and water. Do NOT wash with peroxide or alcohol. Take tylenol or ibuprofen at home for pain Take the antibiotic as directed You tetanus is up to date. Follow up with your PCP Go to the ER with any signs of infection such as redness, swelling, increased pain, or drainage. Patient Language: Welsh Prescriptions: New cephalexin 500 mg capsule 500 mg PO Q12H 5 Days Qty: 10 0RF Follow-up/Referrals: PHYSICIAN,HELIARC WELDER [Primary Care Provider] -
[2025-04-07 17:57] VITALS: BP 114/70; PULSE 81; RESP 18; TEMP 36.1; O2SAT 100
[2025-04-07] MEDS: LIDOCAINE 1% LOCAL INJ 2 ML AMPUL 4 ML INFILTRATE (18:24)
== END 2025-04-07 18:50 | disposition home or self-care (01) ==
PROVIDERS: Emergency Provider Nurse Practitioner Family; Referring Provider Family Medicine
DX: S61.213A Laceration without foreign body of left middle finger without damage to nail, initial encounter (principal); W27.0XXA Contact with workbench tool, initial encounter; K21.9 Gastro-esophageal reflux disease without esophagitis
CPT/HCPCS: 12001; 99213; G0463; J2003

== ENCOUNTER 2025-04-17 11:58 | Emergency (ER) | payer SELFPAY ==
--- OUTSIDE RECORDS SUMMARY | 2025-04-17 12:10 | XMS_ITS | Referral Summary ---
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 He has pending [...] 6mo. Assessment & Plan (10/11/2021 4:37 PM ENTERPRISE SOFTWARE DEVELOPER): We reviewed recent labs in detail. He was advised heart healthy diet, exercise 4 times per week for 30 minutes each session. Encouraged cutting back on red meat and pork. Will repeat a fasting lipid panel in 8-12 weeks. Labs entered for [facility]. History of Clostridioides difficile infection Assessment & Plan (09/06/2021 6:32 PM ENTERPRISE SOFTWARE DEVELOPER): Retrieve records from previous PCP. We discussed attempts to minimize antibiotic use. Need for influenza vaccination 09/06/2021 Tobacco use disorder 09/06/2021 Assessment & Plan (01/03/2022 7:35 PM CDT): Advised continued attempts at smoking cessation Assessment & Plan (10/11/2021 4:37 PM ENTERPRISE SOFTWARE DEVELOPER): Encouraged continued attempts at smoking cessation. Assessment & Plan (09/06/2021 6:32 PM ENTERPRISE SOFTWARE DEVELOPER): Advised tempting to cut back and ultimately quit smoking. Will initiate Wellbutrin to assist in this endeavor. BMI 25.0-25.9,adult 09/06/2021 Arthralgia 09/06/2021 Assessment & Plan (09/06/2021 6:33 PM ENTERPRISE SOFTWARE DEVELOPER): Will evaluate further with labs and imaging. We discussed this could have several potential etiologies, including depression. Gallbladder sludge 09/06/2021 Assessment & Plan (10/11/2021 4:38 PM ENTERPRISE SOFTWARE DEVELOPER): We reviewed recent normal abdominal ultrasound. He is asymptomatic at this time and declines further workup. Assessment & Plan (09/06/2021 6:33 PM ENTERPRISE SOFTWARE DEVELOPER): Will re-evaluate on abdominal ultrasound. Costochondritis 09/06/2021 Assessment & Plan (09/06/2021 6:33 PM ENTERPRISE SOFTWARE DEVELOPER): We discussed potential etiologies, including cardiovascular concerns. [...] 10/11/2021 Assessment & Plan (09/06/2021 6:32 PM ENTERPRISE SOFTWARE DEVELOPER): Retrieve records from previous PCP Immunizations Immunization [...] on file Legal Sex Male 3:30 AM ENTERPRISE SOFTWARE DEVELOPER Gender Identity Not on file Sexual Orientation [...] CDT Respiratory Rate 18 09/06/2021 5:10 PM ENTERPRISE SOFTWARE DEVELOPER Oxygen Saturation 97% 01/03/2022 5:24 PM CDT Inhaled Oxygen Concentration - - Weight 72 kg (158 lb 12.8 oz) 01/03/2022 5:24 PM CDT Height 167.6 cm (5' 6) 01/03/2022 5:24 PM CDT Body Mass Index 25.63 01/03/2022 5:24 PM CDT Plan of Treatment Not on file Insurance [facility] CHOICE PLUS [facility] HMO/PPO Address: [facility] [address] [place] [address] Care Teams Traffic Control Flagger Relationship Specialty Start Date End Date Katerine Kebede PA PCP - General Clinical Coder 08/23/21
--- OUTSIDE RECORDS SUMMARY | 2025-04-17 12:10 | XMS_ITS | Clinical Summary ---
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 He has pending [...] 6mo. Assessment & Plan (10/11/2021 4:37 PM SUPERVISOR MICROBIOLOGY TECHNOLOGISTS): We reviewed recent labs in detail. He was advised heart healthy diet, exercise 4 times per week for 30 minutes each session. Encouraged cutting back on red meat and pork. Will repeat a fasting lipid panel in 8-12 weeks. Labs entered for [facility]. History of Clostridioides difficile infection Assessment & Plan (09/06/2021 6:32 PM SUPERVISOR MICROBIOLOGY TECHNOLOGISTS): Retrieve records from previous PCP. We discussed attempts to minimize antibiotic use. Need for influenza vaccination 09/06/2021 Tobacco use disorder 09/06/2021 Assessment & Plan (01/03/2022 7:35 PM CDT): Advised continued attempts at smoking cessation Assessment & Plan (10/11/2021 4:37 PM SUPERVISOR MICROBIOLOGY TECHNOLOGISTS): Encouraged continued attempts at smoking cessation. Assessment & Plan (09/06/2021 6:32 PM SUPERVISOR MICROBIOLOGY TECHNOLOGISTS): Advised tempting to cut back and ultimately quit smoking. Will initiate Wellbutrin to assist in this endeavor. BMI 25.0-25.9,adult 09/06/2021 Arthralgia 09/06/2021 Assessment & Plan (09/06/2021 6:33 PM SUPERVISOR MICROBIOLOGY TECHNOLOGISTS): Will evaluate further with labs and imaging. We discussed this could have several potential etiologies, including depression. Gallbladder sludge 09/06/2021 Assessment & Plan (10/11/2021 4:38 PM SUPERVISOR MICROBIOLOGY TECHNOLOGISTS): We reviewed recent normal abdominal ultrasound. He is asymptomatic at this time and declines further workup. Assessment & Plan (09/06/2021 6:33 PM SUPERVISOR MICROBIOLOGY TECHNOLOGISTS): Will re-evaluate on abdominal ultrasound. Costochondritis 09/06/2021 Assessment & Plan (09/06/2021 6:33 PM SUPERVISOR MICROBIOLOGY TECHNOLOGISTS): We discussed potential etiologies, including cardiovascular concerns. [...] 10/11/2021 Assessment & Plan (09/06/2021 6:32 PM SUPERVISOR MICROBIOLOGY TECHNOLOGISTS): Retrieve records from previous PCP Immunizations Immunization [...] on file Legal Sex Male 3:30 AM SUPERVISOR MICROBIOLOG[employer] TECHNOLOGISTS Gender Identity Not on file Sexual Orientation [...] CDT Respiratory Rate 18 09/06/2021 5:10 PM SUPERVISOR MICROBIOLOGY TECHNOLOGISTS Oxygen Saturation 97% 01/03/2022 5:24 PM CDT Inhaled Oxygen Concentration - - Weight 72 kg (158 lb 12.8 oz) 01/03/2022 5:24 PM CDT Height 167.6 cm (5' 6) 01/03/2022 5:24 PM CDT Body Mass Index 25.63 01/03/2022 5:24 PM CDT Plan of Treatment Not on file Insurance [facility] CHOICE PLUS [facility] H[facility]/PPO Address: [facility] [id number] [place] [id number] Care Teams Flight Follower Relationship Specialty Start Date End Date Katerine Kebede PA PCP - General Geology Instructor 08/23/21
--- OUTSIDE RECORDS SUMMARY | 2025-04-17 12:10 | XMS_ITS | Clinical Summary ---
Author Organization [facility] Address [address] [place] [id number] Phone Care Team Providers Care Network Planner Name Role Phone Unavailable Primary Care Provider [...] Q 5 years 2023 INFLUENZA VACCINE (#1) 2025 HPV VACCINES Aged Out No longer eligi ble based on patient's age to complete this topic
--- OUTSIDE RECORDS SUMMARY | 2025-04-17 12:10 | XMS_ITS | Continuity of Care Document ---
Author Organization [facility] Address [address] [place] [address] Phone Care Team Providers Care Project Manager Name Role Phone Mitul Fernandez MD Unavailable [...] Date Provider Providers Copied on Encounter [facility], [address] [place] [address], [address] [place] [address], tel:[phone] [facility] No Information [address] Jim [address]uman. [address] [place] [address], [id number] , [place]. tel: [phone] Independent Medical Examination [facility], [address] [place] [address], [id number], [phone] [facility] [address] Jim [address]uman[address] [place] [address], [id number] , [place]. tel: [phone] Family History Family Member Type Diagnosis Age At Onset Mother Problem (finding) Heart disease Mother Problem (finding) hypertension Father Problem (finding) Diabetes mellitus Payers Payer name Insurance type Covered constitution party ID Authoriza tion(s) [employer] WC [id number] Social History Type Description Quantity Date Captured [...]
--- OUTSIDE RECORDS SUMMARY | 2025-04-17 12:11 | XMS_ITS | Continuity of Care Document ---
Author Organization [facility] Address [address] [place] [address] Phone Care Team Providers Care Pack Room Operator Name Role Phone Mitul Fernandez MD Unavailable [...] Date Provider Providers Copied on Encounter [facility], [address] [place] [address], [address] [place] [address], tel:[phone] [facility] No Information 8 [address] Jim [address]uman. [address] [place] [address], [id number] , [place]. tel: [phone] Independent Medical Examination [facility], [address] [place] [address], [id number], [phone] [facility] JOINT PAIN-SHLDER [address]uman. [address] [place] [address], [id number] , [place]. tel: [phone] Family History Family Member Type Diagnosis Age At Onset Mother Problem (finding) Heart disease Mother Problem (finding) hypertension Father Problem (finding) Diabetes mellitus Payers Payer name Insurance type Covered alliance party ID Authoriza tion(s) [employer] WC [id number] Social History Type Description Quantity Date Captured [...]
[2025-04-17 12:13] VITALS: BP 124/80; PULSE 76; RESP 18; TEMP 36.6; O2SAT 98
--- NOTE | 2025-04-17 12:14 | ED.WOUNDLAC ---
HPI - Wound/Laceration General Chief Complaint: Wound/Laceration Stated Complaint: stitch removal Time Seen by Provider: 04/17/25 12:14 Source: patient, RN notes reviewed and old records reviewed Mode of arrival: ambulatory Limitations: no limitations History of Present Illness HPI narrative: 44-year-old male presents to the [facility] requesting to have 3 sutures removed that were placed on the 07 of April. Area is well approximated. No redness or swelling noted. Three sutures intact left 3rd finger Related Data Home Medications ?Medication ?Instructions ?Recorded ?Confirmed ?Last Taken ?Type No Home Medications 04/17/25 04/17/25 Unknown History Allergies Allergy/AdvReac Type Severity Reaction Status Date / Time No Known Allergies Allergy Verified 04/17/25 12:14 Review of Systems Review of Systems: All systems reviewed & are unremarkable except as noted in HPI and below Constitutional: Constitutional: Reports no additional constitutional complaints Integumentary/Breasts: Skin/Breast: Reports as per HPI and Reports wounds PMFSH Past Medical History Medical History GERD (gastroesophageal reflux disease) Migraines Surgical History Surgical History H/O shoulder surgery Social History Social History Social History: History of tobacco use and alcohol use Gender identity (if verbalized by the patient): Male Comments At the time of my signature, I reviewed and agree with the nursing past medical, surgical, social, and family history. There is no relevant family history pertinent to the patient complaint. Exam Const: General: cooperative, healthy appearing, comfortable, no acute distress, well developed, alert and well nourished Nutritional Appearance: well nourished Orientation/consciousness: patient oriented x3 Limitations: no limitations HENMT: Head: normal to inspection Eyes: General: appearance normal, both eyes and all related structures Alignment and Position: alignment normal Neck: Neck: normal visual inspection, full ROM, no lymphadenopathy and no meningeal signs Chest: Chest palpation & inspection: normal inspection of the chest Resp: Effort & Inspection: normal respiratory effort and able to speak in complete sentences Cardio: Rate: regular rate Skin: General skin exam: normal color and no rashes or lesions noted Wounds: wounds noted Other: Well-approximated [address] left 3rd finger distal Neuro: General: patient oriented x3, gait normal, moves all extremities and no meningeal signs Cognition (Neuro): normal cognition Speech: normal speech Gait exam (Neuro): Normal gait present Extrem: General: normal to inspection, full ROM, capillary refill normal and normal gait Left upper extremity: hand normal ROM of fingers Psych: Appearance: grossly normal and well kempt Mental Status: mental status grossly normal Speech and movement: Normal speech and movement present and Clear speech present Affect: normal affect Attitude: cooperative Course Course Level of Care: Express Care Visit Vital Signs Vital signs: Vital Signs Temperature 98 F 04/17/25 12:13 Pulse Rate 76 04/17/25 12:13 Respiratory Rate 18 04/17/25 12:13 Blood Pressure 124/80 04/17/25 12:13 Pulse Oximetry 98 04/17/25 12:13 Oxygen Delivery Room Air 04/17/25 12:13 Temperature 98 F 04/17/25 12:13 Pulse Rate 76 04/17/25 12:13 Respiratory Rate 18 04/17/25 12:13 Blood Pressure 124/80 04/17/25 12:13 Pulse Oximetry 98 04/17/25 12:13 Oxygen Delivery Room Air 04/17/25 12:13 Reviewed MDM - Wound/Laceration MDM Narrative Medical decision making narrative: Patient sitting in exam room. Patient is nontoxic, vitals are stable. Patient presents for suture removal. Three sutures in place, well approximated, well healed. No signs of infection Area cleaned with Betadine, 3 sutures removed without issue, patient tolerated well Patient appropriate for outpatient follow-up Discharge instructions reviewed with patient, as well as provided in writing per nursing staff. The instructions also include specific and strict return/GO TO THE ER as well as f/u information. All questions have been answered, and the patient deny any further questions with discharge and discharge plan. Some parts of this dictation were generated by voice recognition software and may contain typographical and/or grammatical inaccuracies. Differential Diagnosis Differential diagnosis: Likely laceration and abrasion Critical Care Time Critical Care Time Critical Care Time: No Discharge Plan Discharge Clinical Impression: Encounter for removal of sutures Patient Disposition: Home Condition: Stable Instructions: Antibiotic Form, Acute Wounds (ED) Additional Instructions: Keep area clean and dry. Wash with warm soapy water twice daily, pat dry. When not at home keep it covered. When at home keep it open to air. Follow-up with primary care provider as needed If you are having a hard time finding a physician please call our [facility] liaison at [phone]. Patient Language: Kenyan Prescriptions: No Action No Home Medications Follow-up/Referrals: PHYSICIAN,INSPECTION MACHINE TENDER [Primary Care Provider] - Time of Disposition: 12:25
== END 2025-04-17 12:27 | disposition home or self-care (01) ==
PROVIDERS: Emergency Provider Nurse Practitioner; Referring Provider Emergency Medicine
DX: S61.213D Laceration without foreign body of left middle finger without damage to nail, subsequent encounter (principal); X58.XXXD Exposure to other specified factors, subsequent encounter; K21.9 Gastro-esophageal reflux disease without esophagitis
CPT/HCPCS: 99211; G0463

== ENCOUNTER 2025-07-02 09:15 | Emergency (ER) | payer SELFPAY ==
--- NOTE | ~2025-07-02 | XR_ITS ---
Examination: XR finger 1st LT min 2V Clinical History: injury Comparison: Left hand radiographs 03/01/2022 Technique: 3 views left first finger Findings/impression: 1. No fracture. 2. Question subluxation along carpal metacarpal joint on one projection. Probably merely positioning but recommend physical exam. Reviewed, dictated and finalized at location R.
[2025-07-02 09:22] VITALS: BP 124/83; PULSE 81; RESP 16; TEMP 36.3; O2SAT 99
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
--- OUTSIDE RECORDS SUMMARY | 2025-07-02 09:54 | XMS_ITS | Clinical Summary ---
Author Organization [facility] Address [address] [place] [id number] Care Team Providers Care Public Safety Telecommunicator Name Role Phone Heather Hurd MD Primary Care Provider [phone] Social History Tobacco Use Types Packs/Day Years [...] - 19+ 3-dose series) 1997 COVID-19 Vaccine ( - 2023-2 5 season) 2025 Meningococcal B Vaccine Aged Out No l [...] age to complete this topic Care Teams Public Safety Telecommunicator Relationship Specialty Start Date End Date Heather Hurd MD [address], [place] [address] PCP - General 08/24/11
--- OUTSIDE RECORDS SUMMARY | 2025-07-02 09:54 | XMS_ITS | Clinical Summary ---
Author Organization [facility] Address [address] [place] [address] Care Team Providers Care Salesperson [employer] Name Role Phone Bridget Moyer NP Primary Care Provider [phone] Allergies No known active allergies Medications buPROPion XL (WELLBUTRIN XL) 300 mg 24 hr tabletIndicatio ns:Episode of recurrent major depressive disorder, unspecified depression episode severity,Tobacc o use disorder Take 1 tablet (300 mg total) by mouth every morning 90 tablet 3 2 Active Additional Information Patient not taking.Reported on 05/29/2025 ciprofloxacin (CILOXAN) 0.3 % ophthalmic solutionIndicat ions:Eye infection, unspecified laterality Administer 1 drop into both eyes every 2 (two) hours Administer 1 drop, every 2 hours, while awake, for 2 days. Then 1 drop, every 4 hours, while awake, for the next 5 days. 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 He has pending [...] Assessment & Plan (10/11/2021 4:37 PM SUPERVISOR PURIFICATION): We reviewed recent labs in detail. He was advised heart healthy diet, exercise 4 times per week for 30 minutes each session. Encouraged cutting back on red meat and pork. Will repeat a fasting lipid panel in 8-12 weeks. Labs entered for [facility]. History of Clostridioides difficile infection Assessment & Plan (09/06/2021 6:32 PM SUPERVISOR PURIFICATION): Retrieve records from previous PCP. We discussed attempts to minimize antibiotic use. Physical exam, annual 09/06/2021 Assessment & Plan (09/06/2021 6:32 PM SUPERVISOR PURIFICATION): Retrieve records from previous PCP Need for influenza vaccination 09/06/2021 Tobacco use disorder 09/06/2021 Assessment & Plan (01/03/2022 7:35 PM CDT): Advised continued attempts at smoking cessation Assessment & Plan (10/11/2021 4:37 PM SUPERVISOR PURIFICATION): Encouraged continued attempts at smoking cessation. Assessment & Plan (09/06/2021 6:32 PM SUPERVISOR PURIFICATION): Advised tempting to cut back and ultimately quit smoking. Will initiate Wellbutrin to assist in this endeavor. BMI 26.0-26.9,adult 09/06/2021 Arthralgia 09/06/2021 Assessment & Plan (09/06/2021 6:33 PM SUPERVISOR PURIFICATION): Will evaluate further with labs and imaging. We discussed this could have several potential etiologies, including depression. Gallbladder sludge 09/06/2021 Assessment & Plan (10/11/2021 4:38 PM SUPERVISOR PURIFICATION): We reviewed recent normal abdominal ultrasound. He is asymptomatic at this time and declines further workup. Assessment & Plan (09/06/2021 6:33 PM SUPERVISOR PURIFICATION): Will re-evaluate on abdominal ultrasound. Costochondritis 09/06/2021 Assessment & Plan (09/06/2021 6:33 PM SUPERVISOR PURIFICATION): We discussed potential etiologies, including cardiovascular concerns. [...] the symptoms worsen or do not improve. Encounters Date Type Department Care Team Description 06/05/2025 Telephone [facility] [address] [place] [address] [address] [place] [address] Bridget Moyer NP 06/04/2025 Telephone [facility] [address] [place] [address] [address] [place] [address] Bridget Moyer NP 05/29/2025 1:00 PM CDT Office Visit [address] [place] [phone] Bridget Moyer, RODERICK Physical exam, annual (Primary Dx); BMI 26.0-26.9,adult; Mixed hyperlipidemia; Prediabetes from Last 3 Months Immunizations Immunization Administration Dates Next Due Influenza, Quadrivalent, Spl it, Preservative Free, Intramuscular 09/06/2021 Influenza, Unspecified 10/09/2024(Deferr ed: Patient Refused),10/09/2023(Deferred: Patient Refused) Tdap 03/13/2021,09/08/2011 Surgical History Surgery Date Site/Laterality Comments SHOULDER SURGERY 08/09/2015 - 09/07/2015 Right bicep repair, 3 tendons, rotator cuff Medical History Medical History Date Comments Hyperlipidemia Family History Medical History Relation Name Comments [...] Day Cigarettes 1 27 Smokeless Tobacco: Never Alcohol Use Standard Drinks/Week Comments Never 0 (1 standard drink = 0.6 oz pur e alcohol) PHQ-2 Answer Date Recorded PHQ-2 Total Score (If total score is 3 or more points, staff should administer the PHQ-9) 0 05/29/2025 AUDIT-C Answer Date Recorded Q1: How often do you have a drink containing alcohol? Never 05/29/2025 Q2: How many drinks containi ng alcohol do you have on a typical day when you are drinking? Patient does not drink Q3: How often do you have si x or more drinks on one occasion? 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 Obstetrics History Last Filed Vital Signs Vital Sign Reading Time Taken Comments Blood Pressure 120/76 05/29/2025 1:08 PM CDT Pulse 73 05/29/2025 1:08 PM CDT Temperature 36.8 C (98.3 F) 05/29/2025 1:08 PM CDT Respiratory Rate 18 09/06/2021 5:10 PM SUPERVISOR PURIFICATION Oxygen Saturation 97% 05/29/2025 1:08 PM CDT Inhaled Oxygen Concentration - - Weight 74.4 kg (164 lb) 05/29/2025 1:08 PM CDT Height 167.6 cm (5' 6) 05/29/2025 1:08 PM CDT Body Mass Index 26.47 05/29/2025 1:08 PM CDT Plan of Treatment Health Maintenance Due Date Last Done Comments Colon Cancer Screening-Colonoscopy 1978 Hepatitis C Screening 1978 Hepatitis B Screening 1996 Pneumococcal vaccine <65 (1 of 2 - PCV) 1997 Covid-19 Vaccine (3 - 2024-2 6 season) 2025 05/27/2021, 05/06/2021 Influenza Vaccine (#1) 2025 09/06/2021 Depression Screening 05/29/2026 05/29/2025, 09/06/2021 Regular Well Visit/Exam 18-64 05/29/2026 05/29/2025 DTaP/Tdap/Td Vaccine (3 - Td or Tdap) 03/13/2031 03/13/2021, 09/08/2011 HPV Vaccines Aged Out No longer eligi ble based on patient's age to complete this topic Care Teams Salesperson [employer] Relationship Specialty Start Date End Date Bridget Moyer NP [address] [place] [address] PCP - General Internal Medicine 05/29/25
--- OUTSIDE RECORDS SUMMARY | 2025-07-02 09:54 | XMS_ITS | Clinical Summary ---
Author Organization [facility] Address [address] [place] [id number] Phone Care Team Providers Care Mesh Worker Name Role Phone Unavailable Primary Care Provider [...]
[2025-07-02] MEDS: LIDOCAINE, EPINEPHRINE, TETRACAINE VISCOUS SOLN 3 ML TOPICAL (09:55)
== END 2025-07-02 10:35 | disposition short-term general hospital (02) ==
PROVIDERS: Emergency Provider Nurse Practitioner
DX: S63.045A Dislocation of carpometacarpal joint of left thumb, initial encounter (principal); V18.4XXA Pedal cycle driver injured in noncollision transport accident in traffic accident, initial encounter; Y93.55 Activity, bike riding; K21.9 Gastro-esophageal reflux disease without esophagitis; Z87.891 Personal history of nicotine dependence
CPT/HCPCS: 73140; 99213; G0463

== ENCOUNTER 2025-07-24 08:30 | Outpatient (CLI) | payer SELFPAY ==
--- NOTE | ~2025-07-24 | MR_ITS ---
EXAMINATION: MR hand LT wo con DATE: 07/24/2025 09:17 INDICATION: Left hand pain TECHNIQUE: Magnetic resonance imaging (MRI) of the thumb of the left hand was performed without intravenous contrast. Sequences included axial, sagittal and coronal T1-weighted FSE, axial and sagittal T2-weighted FS FSE, sagittal and coronal fluid sensitive FSE STIR and coronal PD-weighted FS FS. COMPARISON: Radiographs dated 07/02/2025 FINDINGS: The recently dislocated left first carpometacarpal joint has been successfully reduced to normal alignment. High-grade partial if not complete tear of the proximal aspect of the dorsal deltoid ligament at the first carpometacarpal joint and of the distal margin of the anterior oblique (beak) ligament and intermetacarpal ligaments. There is mild reactive edema in the surrounding soft tissues. The visualized portions of the flexor and extensor tendons including the abductor pollicis longus, eccentric pulses longus and brevis and the flexor pollicis longus tendons are all normal. There is minimal reactive marrow edema at the volar side of the base of the first metacarpal and dorsal aspect of the trapezium. No fracture or pathologic marrow replacing process. The radial and ulnar collateral ligament complex at the first metacarpophalangeal and interphalangeal joints are normal. IMPRESSION: 1. Reduction to normal alignment of the recently dorsally dislocated first carpal metacarpal with high-grade partial if not complete tears of the stabilizing ligaments at the first carpometacarpal joint including the dorsal deltoid ligament, anterior oblique (beak) ligament and intermetacarpal ligament s. Reviewed, dictated and finalized at location A. IMPRESSION: 1. Reduction to normal alignment of the recently dorsally dislocated first carp al metacarpal with high-grade partial if not complete tears of the stabilizing ligaments at the first carpometacarpal joint including the dorsal deltoid ligam ent, anterior oblique (beak) ligament and intermetacarpal ligaments.
== END 2025-07-24 08:31 | disposition home or self-care (01) ==
PROVIDERS: PCP Orthopaedic Surgery Hand Surgery; Visit Provider Orthopaedic Surgery Hand Surgery
DX: M79.642 Pain in left hand (principal)
CPT/HCPCS: 73218